=== PATIENT | male | born 1975 | race Hispanic/Latino ===

== ENCOUNTER 2019-08-08 08:46 | Emergency (ER) | payer OTHER ==
--- NOTE | 2019-08-08 09:05 | Emergency Department Report ---
ED Psych HPI - General Chief Complaint: Psych Stated Complaint: BIPOLAR/SCHIZOPHRENIA Time Seen by Provider: 08/08/19 09:01 Source: patient Mode of arrival: Ambulatory - History of Present Illness Initial Comments: 43-year-old male patient with history of schizophrenia and bipolar disorder presents with complaint of depression AND suicide for the past few days. Patient states he has a plan to cut his wrists and brought in a freezer to the ED with him. When asked what he planned to use the razor for patient states "I plead the fifth". Patient denies any homicidal thoughts. He states he is not currently taking medications for his bipolar/schizophrenia. He also denies any auditory/visual hallucinations. He admits to use of marijuana, but denies any other recreational drug use. MD Complaint: suicidal ideation, feels depressed -: Gradual, days(s) Associated Psychiatric Symptoms: depression, suicidal ideation Quality: constant Treatments Prior to Arrival: none If Self Harm: admits thoughts of, has plan - Related Data Allergies Allergy/AdvReac Type Severity Reaction Status Date / Time Sulfa (Sulfonamide Allergy Rash Verified 08/08/19 08:53 Antibiotics) ED Review of Systems ROS: Stated complaint: BIPOLAR/SCHIZOPHRENIA Other details as noted in HPI Comment: All other systems reviewed and negative Psychiatric: as per HPI ED Past Medical Hx - Past Medical History Previous Medical History?: Yes Hx Psychiatric Treatment: Yes (Bi polar/Schizophrenic) - Surgical History Past Surgical History?: No - Social History Smoking Status: Current Every Day Smoker Substance Use Type: Alcohol ED Physical Exam - General Limitations: No Limitations - Head Head exam: Present: atraumatic, normocephalic - Eye Eye exam: Present: normal appearance, PERRL - ENT ENT exam: Present: mucous membranes moist - Respiratory Respiratory exam: Present: normal lung sounds bilaterally. Absent: respiratory distress - Cardiovascular Cardiovascular Exam: Present: regular rate, normal rhythm, normal heart sounds. Absent: systolic murmur, diastolic murmur, rubs, gallop - Neurological Exam Neurological exam: Present: alert, oriented X3, normal gait - Psychiatric Psychiatric exam: Present: normal affect, depressed, suicidal ideation. Absent: agitated, anxious, homicidal ideation - Skin Skin exam: Present: warm, dry, intact, normal color. Absent: rash ED Course Vital Signs 08/08/19 08/08/19 09:30 16:29 Temperature 98.3 F 98 F Pulse Rate 89 83 Respiratory 18 Rate Blood Pressure 111/63 113/71 [111/63] O2 Sat by Pulse 97 98 Oximetry ED Medical Decision Making - Lab Data Result diagrams: 08/08/19 09:21 08/08/19 09:21 Lab Results 08/08/19 08/08/19 08/08/19 Range/Units 09:21 09:21 09:21 WBC (4.5-11.0) K/mm3 RBC (3.65-5.03) M/mm3 Hgb (11.8-15.2) gm/dl Hct (35.5-45.6) % MCV (84-94) fl MCH (28-32) pg MCHC (32-34) % RDW (13.2-15.2) % Plt Count (140-440) K/mm3 Lymph % (Auto) (13.4-35.0) % Bradford % (Auto) (0.0-7.3) % Eos % (Auto) (0.0-4.3) % Baso % (Auto) (0.0-1.8) % Lymph # (1.2-5.4) K/mm3 Bradford # (0.0-0.8) K/mm3 Eos # (0.0-0.4) K/mm3 Baso # (0.0-0.1) K/mm3 Seg Neutrophils % (40.0-70.0) % Seg Neutrophils # (1.8-7.7) K/mm3 Sodium 139 (137-145) mmol/L Potassium 4.5 (3.6-5.0) mmol/L Chloride 100.9 (98-107) mmol/L Carbon Dioxide 23 (22-30) mmol/L Anion Gap 20 mmol/L BUN 11 (9-20) mg/dL Creatinine 0.7 L (0.8-1.5) mg/dL Estimated GFR > 60 ml/min BUN/Creatinine Ratio 16 % Glucose 104 H (75-100) mg/dL Calcium 9.1 (8.4-10.2) mg/dL Urine Color (Yellow) Urine Turbidity (Clear) Urine pH (5.0-7.0) Ur Specific Walnut (1.003-1.030) Urine Protein (Negative) mg/dL Urine Glucose (UA) (Negative) mg/dL Urine Ketones (Negative) mg/dL Urine Blood (Negative) Urine Nitrite (Negative) Urine Bilirubin (Negative) Urine Urobilinogen (<2.0) mg/dL Ur Leukocyte Esterase (Negative) Urine WBC (Auto) (0.0-6.0) /HPF Urine RBC (Auto) (0.0-6.0) /HPF U Epithel Cells (Auto) (0-13.0) /HPF Urine Bacteria (Auto) (Negative) /HPF Salicylates < 0.3 L (2.8-20.0) mg/dL Urine Opiates Screen Urine Methadone Screen Acetaminophen < 5.0 L (10.0-30.0) ug/mL Ur Barbiturates Screen Ur Phencyclidine Scrn Ur Amphetamines Screen U Benzodiazepines Scrn Urine Cocaine Screen U Marijuana (THC) Screen Drugs of Abuse Note Plasma/Serum Alcohol (0-0.07) % 08/08/19 08/08/19 08/08/19 Range/Units 09:21 09:21 Unknown WBC 5.8 (4.5-11.0) K/mm3 RBC 5.19 H (3.65-5.03) M/mm3 Hgb 12.6 (11.8-15.2) gm/dl Hct 37.6 (35.5-45.6) % MCV 73 L (84-94) fl MCH 24 L (28-32) pg MCHC 34 (32-34) % RDW 18.5 H (13.2-15.2) % Plt Count 291 (140-440) K/mm3 Lymph % (Auto) 28.8 (13.4-35.0) % Bradford % (Auto) 7.5 H (0.0-7.3) % Eos % (Auto) 1.0 (0.0-4.3) % Baso % (Auto) 0.6 (0.0-1.8) % Lymph # 1.7 (1.2-5.4) K/mm3 Bradford # 0.4 (0.0-0.8) K/mm3 Eos # 0.1 (0.0-0.4) K/mm3 Baso # 0.0 (0.0-0.1) K/mm3 Seg Neutrophils % 62.1 (40.0-70.0) % Seg Neutrophils # 3.6 (1.8-7.7) K/mm3 Sodium (137-145) mmol/L Potassium (3.6-5.0) mmol/L Chloride (98-107) mmol/L Carbon Dioxide (22-30) mmol/L Anion Gap mmol/L BUN (9-20) mg/dL Creatinine (0.8-1.5) mg/dL Estimated GFR ml/min BUN/Creatinine Ratio % Glucose (75-100) mg/dL Calcium (8.4-10.2) mg/dL Urine Color Yellow (Yellow) Urine Turbidity Cloudy (Clear) Urine pH 8.0 H (5.0-7.0) Ur Specific Walnut 1.014 (1.003-1.030) Urine Protein <15 mg/dl (Negative) mg/dL Urine Glucose (UA) Neg (Negative) mg/dL Urine Ketones Neg (Negative) mg/dL Urine Blood Neg (Negative) Urine Nitrite Neg (Negative) Urine Bilirubin Neg (Negative) Urine Urobilinogen < 2.0 (<2.0) mg/dL Ur Leukocyte Esterase Neg (Negative) Urine WBC (Auto) 15.0 H (0.0-6.0) /HPF Urine RBC (Auto) 3.0 (0.0-6.0) /HPF U Epithel Cells (Auto) < 1.0 (0-13.0) /HPF Urine Bacteria (Auto) 1+ (Negative) /HPF Salicylates (2.8-20.0) mg/dL Urine Opiates Screen Urine Methadone Screen Acetaminophen (10.0-30.0) ug/mL Ur Barbiturates Screen Ur Phencyclidine Scrn Ur Amphetamines Screen U Benzodiazepines Scrn Urine Cocaine Screen U Marijuana (THC) Screen Drugs of Abuse Note Plasma/Serum Alcohol < 0.01 (0-0.07) % 08/08/19 Range/Units Unknown WBC (4.5-11.0) K/mm3 RBC (3.65-5.03) M/mm3 Hgb (11.8-15.2) gm/dl Hct (35.5-45.6) % MCV (84-94) fl MCH (28-32) pg MCHC (32-34) % RDW (13.2-15.2) % Plt Count (140-440) K/mm3 Lymph % (Auto) (13.4-35.0) % Bradford % (Auto) (0.0-7.3) % Eos % (Auto) (0.0-4.3) % Baso % (Auto) (0.0-1.8) % Lymph # (1.2-5.4) K/mm3 Bradford # (0.0-0.8) K/mm3 Eos # (0.0-0.4) K/mm3 Baso # (0.0-0.1) K/mm3 Seg Neutrophils % (40.0-70.0) % Seg Neutrophils # (1.8-7.7) K/mm3 Sodium (137-145) mmol/L Potassium (3.6-5.0) mmol/L Chloride (98-107) mmol/L Carbon Dioxide (22-30) mmol/L Anion Gap mmol/L BUN (9-20) mg/dL Creatinine (0.8-1.5) mg/dL Estimated GFR ml/min BUN/Creatinine Ratio % Glucose (75-100) mg/dL Calcium (8.4-10.2) mg/dL Urine Color (Yellow) Urine Turbidity (Clear) Urine pH (5.0-7.0) Ur Specific Walnut (1.003-1.030) Urine Protein (Negative) mg/dL Urine Glucose (UA) (Negative) mg/dL Urine Ketones (Negative) mg/dL Urine Blood (Negative) Urine Nitrite (Negative) Urine Bilirubin (Negative) Urine Urobilinogen (<2.0) mg/dL Ur Leukocyte Esterase (Negative) Urine WBC (Auto) (0.0-6.0) /HPF Urine RBC (Auto) (0.0-6.0) /HPF U Epithel Cells (Auto) (0-13.0) /HPF Urine Bacteria (Auto) (Negative) /HPF Salicylates (2.8-20.0) mg/dL Urine Opiates Screen Presumptive negative Urine Methadone Screen Presumptive negative Acetaminophen (10.0-30.0) ug/mL Ur Barbiturates Screen Presumptive negative Ur Phencyclidine Scrn Presumptive negative Ur Amphetamines Screen Presumptive negative U Benzodiazepines Scrn Presumptive negative Urine Cocaine Screen Presumptive negative U Marijuana (THC) Screen Presumptive positive Drugs of Abuse Note Disclamer Plasma/Serum Alcohol (0-0.07) % - Medical Decision Making Patient placed on 1013 for suicidal thoughts with plan to harm himself. Razor was taken from patient. Patient denies any other complaints. Patient is medically cleared. UA shows 15 WBCsurine culture and GC chlamydia ordered. Patient denies penile discharge or dysuria. Critical care attestation.: If time is entered above; I have spent that time in minutes in the direct care of this critically ill patient, excluding procedure time. ED Disposition Clinical Impression: Suicidal ideation Disposition: DC/TX-65 PSY HOSP/PSY UNIT Is pt being admited?: No Condition: Stable
[2019-08-08 09:38] LABS: Basophils % (Auto) 0.6 % (0.0-1.8); Eosinophils # (Auto) 0.1 K/mm3 (0.0-0.4); Hematocrit 37.6 % (35.5-45.6); Hemoglobin 12.6 gm/dl (11.8-15.2); Lymphocytes # (Auto) 1.7 K/mm3 (1.2-5.4); Lymphocytes % (Auto) 28.8 % (13.4-35.0); Mean Corpuscular HGB Conc 34 % (32-34); Mean Corpuscular Volume 73 fl (84-94); Monocytes # (Auto) 0.4 K/mm3 (0.0-0.8); Monocytes % (Auto) 7.5 % (0.0-7.3); Platelet Count 291 K/mm3 (140-440); Red Blood Count 5.19 M/mm3 (3.65-5.03); Red Cell Distribution Width 18.5 % (13.2-15.2)
[2019-08-08 09:47] LABS: Amphetamine Screen,Urine PRESUMPTIVE NEGATIVE; Bacteria,Urine 1+ /HPF (Negative); Benzodiazepines Screen,Urine PRESUMPTIVE NEGATIVE; Bilirubin,Urine NEG (Negative); Blood,Urine NEG (Negative); Cocaine Screen,Urine PRESUMPTIVE NEGATIVE; Color,Urine Yellow (Yellow); Methadone Screen,Urine PRESUMPTIVE NEGATIVE; Opiate Screen,Urine PRESUMPTIVE NEGATIVE; Protein,Urine <15 mg/dL mg/dL (Negative); Urobilinogen,Urine < 2.0 mg/dL (<2.0)
[2019-08-08 09:58] LABS: BUN/Creatinine Ratio 16; Blood Urea Nitrogen 11 mg/dL (9-20); Calcium 9.1 mg/dL (8.4-10.2); Hemolysis Index 5
[2019-08-08 10:03] LABS: Cannabinoid Screen,Urine PRESUMPTIVE POSITIVE
[2019-08-08 16:30] VITALS: BP 113/71
== END 2019-08-08 19:00 ==
LOC: ED 08:46
DX: F31.9 Bipolar disorder, unspecified (principal); F20.9 Schizophrenia, unspecified; F17.200 Nicotine dependence, unspecified, uncomplicated; Z88.2 Allergy status to sulfonamides
CPT/HCPCS: 36415; 80048; 80307; 80320; 81001; 85025; 87076; 87086; 87186; G0480

== ENCOUNTER 2019-08-12 23:33 | Emergency (ER) | payer OTHER ==
[2019-08-13 00:20] VITALS: BP 113/68
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
== END 2019-08-13 04:23 | disposition home or self-care (01) ==
LOC: ED 23:33
DX: F20.9 Schizophrenia, unspecified (principal); F31.9 Bipolar disorder, unspecified; F17.200 Nicotine dependence, unspecified, uncomplicated; Z90.49 Acquired absence of other specified parts of digestive tract; Z88.2 Allergy status to sulfonamides

== ENCOUNTER 2021-04-12 13:06 | Emergency (ER) | payer OTHER | END 2021-04-12 13:15 | disposition left against medical advice (07) | LOC: ED 13:06 ==

== ENCOUNTER 2021-04-16 16:25 | Emergency (ER) | payer MEDICARE, OTHER ==
--- NOTE | 2021-04-16 17:47 | Emergency Department Report ---
ED Psych HPI - General Chief Complaint: Psych Stated Complaint: MENTAL HEALTH Time Seen by Provider: 04/16/21 17:30 Source: patient Mode of arrival: Ambulatory - History of Present Illness Initial Comments: Patient is 45 years old male with history of schizophrenia. Patient presented to the ER stating that he wanted to be [facility] of his [facility]. Patient stated that he want to change his sex to became a boy. Patient is very delusional with flight of ideas. Patient denied any suicidal or homicidal ideation. He stated that he is hearing voices sometimes. No visual hallucination. Patient admitted using methamphetamine last night. MD Complaint: altered mental status -: days(s) Context: recent drug abuse - Related Data Allergies Allergy/AdvReac Type Severity Reaction Status Date / Time Sulfa (Sulfonamide Allergy Rash Verified 08/08/19 08:53 Antibiotics) ED Review of Systems ROS: Stated complaint: MENTAL HEALTH Other details as noted in HPI Comment: All other systems reviewed and negative Constitutional: denies: chills, fever Respiratory: denies: cough, shortness of breath, SOB with exertion Cardiovascular: denies: chest pain, palpitations Gastrointestinal: denies: abdominal pain, nausea, vomiting, diarrhea, constipation, hematemesis, melena Musculoskeletal: denies: back pain ED Past Medical Hx - Past Medical History Previous Medical History?: Yes Hx Psychiatric Treatment: Yes (Bi polar/Schizophrenic) Hx HIV: Yes - Surgical History Past Surgical History?: Yes Hx Cholecystectomy: Yes Hx Appendectomy: Yes - Social History Smoking Status: Current Every Day Smoker Substance Use Type: None ED Physical Exam - General Limitations: No Limitations General appearance: alert, in no apparent distress, anxious - Head Head exam: Present: atraumatic, normocephalic, normal inspection - Eye Eye exam: Present: normal appearance, PERRL - ENT ENT exam: Present: normal exam, normal orophraynx, mucous membranes moist - Neck Neck exam: Present: normal inspection, full ROM. Absent: tenderness, meni ngismus - Respiratory Respiratory exam: Present: normal lung sounds bilaterally - Cardiovascular Cardiovascular Exam: Present: regular rate, normal rhythm, normal heart sounds - GI/Abdominal GI/Abdominal exam: Present: soft, normal bowel sounds. Absent: distended, tenderness, guarding, rebound, rigid, organomegaly, mass, bruit, pulsatile mass, hernia - Extremities Exam Extremities exam: Present: normal inspection, full ROM, normal capillary refill - Back Exam Back exam: Present: normal inspection, full ROM. Absent: CVA tenderness (R), CVA tenderness (L) - Neurological Exam Neurological exam: Present: alert, oriented X3, CN II-XII intact, normal gait, reflexes normal. Absent: motor sensory deficit - Psychiatric Psychiatric exam: Present: normal mood, anxious. Absent: homicidal ideation, suicidal ideation - Skin Skin exam: Present: warm, intact, normal color ED Course Vital Signs 04/16/21 04/16/21 04/16/21 16:39 17:43 19:51 Temperature 98.7 F 97.8 F 97.3 F L Pulse Rate 81 83 86 Respiratory 18 20 18 Rate Blood Pressure 117/77 Blood Pressure 107/64 118/77 [Right] O2 Sat by Pulse 100 98 100 Oximetry ED Medical Decision Making - Lab Data Result diagrams: 04/16/21 17:51 04/16/21 17:51 Critical care attestation.: If time is entered above; I have spent that time in minutes in the direct care of this critically ill patient, excluding procedure time. ED Disposition Clinical Impression: Acute psychosis Disposition: DC/TX-65 PSY HOSP/PSY UNIT Is pt being admited?: No Condition: Stable Referrals: PRIMARY CARE, [Primary Care Provider] - 3-5 Days
[2021-04-16 17:53] LABS: Bilirubin,Urine NEG (Negative); Blood,Urine NEG (Negative); Color,Urine Yellow (Yellow); Mucus,Urine 1+ /HPF; Protein,Urine <15 mg/dL mg/dL (Negative)
[2021-04-16 18:01] LABS: Benzodiazepines Screen,Urine Negative; Cocaine Screen,Urine Negative; Methadone Screen,Urine Negative; Opiate Screen,Urine Negative
[2021-04-16 18:06] LABS: Basophils % (Auto) 0.9 % (0.0-1.8); Eosinophils % (Auto) 1.3 % (0.0-4.3); Hematocrit 34.8 % (35.5-45.6); Lymphocytes # (Auto) 0.9 K/mm3 (1.2-5.4); Lymphocytes % (Auto) 26.9 % (13.4-35.0); Mean Corpuscular HGB Conc 34 % (32-34); Mean Corpuscular Volume 84 fl (84-94); Monocytes # (Auto) 0.4 K/mm3 (0.0-0.8); Monocytes % (Auto) 11.8 % (0.0-7.3); Platelet Count 169 K/mm3 (140-440); Red Blood Count 4.15 M/mm3 (3.65-5.03); Red Cell Distribution Width 16.9 % (13.2-15.2)
[2021-04-16 18:25] LABS: Blood Urea Nitrogen 8 mg/dL (9-20); Calcium 9.3 mg/dL (8.4-10.2); Hemolysis Index 12
[2021-04-16 18:28] LABS: Amphetamine Screen,Urine Positive; Cannabinoid Screen,Urine Positive
[2021-04-16 18:34] LABS: BUN/Creatinine Ratio 16
[2021-04-17 03:32] VITALS: BP 118/77
== END 2021-04-17 01:30 ==
LOC: ED 16:25
DX: F23 Brief psychotic disorder (principal); F25.0 Schizoaffective disorder, bipolar type; F17.200 Nicotine dependence, unspecified, uncomplicated; Z21 Asymptomatic human immunodeficiency virus [HIV] infection status; Z88.2 Allergy status to sulfonamides; Z90.49 Acquired absence of other specified parts of digestive tract
CPT/HCPCS: 36415; 80048; 80307; 80320; 81001; 85025; 87086; G0480

== ENCOUNTER 2021-05-04 08:42 | Emergency (ER) | payer MEDICARE ==
--- NOTE | 2021-05-04 12:19 | Emergency Department Report ---
<GREYDENISEGEOVANNA CARBALLOGeovanni - Last Filed: 05/04/21 12:17> ED Psych HPI - General Chief Complaint: Psych Stated Complaint: mental help Time Seen by Provider: 05/04/21 12:07 Source: patient Mode of arrival: Ambulatory - History of Present Illness Initial Comments: Patient is 45 years old male with history of schizophrenia and bipolar. Patient stated that he is depressed because he lost his debit card and now he is feeling suicidal. Patient stated that he felt like he wanted to cut his wrist. Patient stated that he is hearing voices asking him to hurt himself. He denied any visual hallucination or homicidal ideation. MD Complaint: suicidal ideation, feels depressed - Related Data Allergies Allergy/AdvReac Type Severity Reaction Status Date / Time Sulfa (Sulfonamide Allergy Rash Verified 08/08/19 08:53 Antibiotics) ED Review of Systems Comment: All other systems reviewed and negative Constitutional: denies: chills, fever Respiratory: denies: cough, shortness of breath, SOB with exertion Cardiovascular: denies: chest pain, palpitations Gastrointestinal: denies: abdominal pain, nausea, vomiting Musculoskeletal: denies: back pain Neurological: denies: headache, weakness ED Past Medical Hx - Past Medical History Previous Medical History?: Yes Hx Psychiatric Treatment: Yes (Bi polar/Schizophrenic) Hx HIV: Yes - Surgical History Hx Cholecystectomy: Yes Hx Appendectomy: Yes - Social History Smoking Status: Unknown if ever smoked ED Physical Exam - General Limitations: No Limitations General appearance: alert, in no apparent distress - Head Head exam: Present: atraumatic, normocephalic, normal inspection - Eye Eye exam: Present: normal appearance, PERRL - Neck Neck exam: Present: normal inspection, full ROM. Absent: tenderness, meningismus - Respiratory Respiratory exam: Present: normal lung sounds bilaterally - Cardiovascular Cardiovascular Exam: Present: regular rate, normal rhythm, normal heart sounds - GI/Abdominal GI/Abdominal exam: Present: soft, normal bowel sounds. Absent: distended, tenderness, guarding, rebound, rigid, organomegaly, mass, bruit, pulsatile mass, hernia - Extremities Exam Extremities exam: Present: normal inspection, full ROM, normal capillary refill. Absent: pedal edema, calf tenderness - Back Exam Back exam: Present: normal inspection, full ROM. Absent: CVA tenderness (R), CVA tenderness (L) - Neurological Exam Neurological exam: Present: alert, oriented X3, CN II-XII intact - Psychiatric Psychiatric exam: Present: normal mood, suicidal ideation - Skin Skin exam: Present: warm, intact, normal color ED Disposition Clinical Impression: Acute depression, Suicidal ideation Disposition: DC/TX-65 PSY HOSP/PSY UNIT Condition: Stable <ROBERTTRISTIN - Last Filed: 05/04/21 18:06> ED Review of Systems ROS: Stated complaint: mental help Other details as noted in HPI ED Course Vital Signs 05/04/21 05/04/21 09:03 12:06 Temperature 98.1 F 98.0 F Pulse Rate 86 90 Respiratory 18 20 Rate Blood Pressure 125/71 Blood Pressure 120/60 [Right] O2 Sat by Pulse 97 100 Oximetry ED Medical Decision Making - Lab Data Result diagrams: 05/04/21 12:23 05/04/21 12:23 - Medical Decision Making [facility]. Critical care attestation.: If time is entered above; I have spent that time in minutes in the direct care of this critically ill patient, excluding procedure time. ED Disposition Is pt being admited?: No Does the pt Need Aspirin: No
[2021-05-04 12:47] LABS: Basophils % (Auto) 0.5 % (0.0-1.8); Eosinophils # (Auto) 0.1 K/mm3 (0.0-0.4); Eosinophils % (Auto) 1.8 % (0.0-4.3); Hematocrit 39.4 % (35.5-45.6); Hemoglobin 13.4 gm/dl (11.8-15.2); Lymphocytes # (Auto) 0.8 K/mm3 (1.2-5.4); Lymphocytes % (Auto) 21.7 % (13.4-35.0); Mean Corpuscular HGB Conc 34 % (32-34); Mean Corpuscular Volume 86 fl (84-94); Monocytes # (Auto) 0.2 K/mm3 (0.0-0.8); Monocytes % (Auto) 6.9 % (0.0-7.3); Platelet Count 167 K/mm3 (140-440); Red Blood Count 4.61 M/mm3 (3.65-5.03); Red Cell Distribution Width 16.6 % (13.2-15.2)
[2021-05-04 13:04] LABS: Blood Urea Nitrogen 8 mg/dL (9-20); Hemolysis Index 38
[2021-05-04 13:15] LABS: BUN/Creatinine Ratio 16
[2021-05-04 16:39] LABS: Bilirubin,Urine NEG (Negative); Blood,Urine NEG (Negative); Color,Urine Straw (Yellow); Protein,Urine <15 mg/dL mg/dL (Negative); RBC,Urine < 1.0 /HPF (0.0-6.0); Urobilinogen,Urine < 2.0 mg/dL (<2.0)
[2021-05-04 16:42] LABS: Amphetamine Screen,Urine Negative; Benzodiazepines Screen,Urine Negative; Cannabinoid Screen,Urine Negative; Cocaine Screen,Urine Negative; Methadone Screen,Urine Negative; Opiate Screen,Urine Negative
[2021-05-04 19:56] VITALS: BP 99/70
== END 2021-05-04 21:42 ==
LOC: ED 08:42
DX: R45.851 Suicidal ideations (principal); F32.9 Major depressive disorder, single episode, unspecified; F20.9 Schizophrenia, unspecified; Z90.49 Acquired absence of other specified parts of digestive tract; Z21 Asymptomatic human immunodeficiency virus [HIV] infection status; Z88.2 Allergy status to sulfonamides
CPT/HCPCS: 36415; 80048; 80307; 80320; 81001; 82962; 85025; G0480

== ENCOUNTER 2022-04-12 23:40 | Emergency (ER) | payer MEDICARE ==
[2022-04-13 04:23] LABS: Alanine Aminotransferase 11 units/L (7-56); Blood Urea Nitrogen 13 mg/dL (9-20); Calcium 9.3 mg/dL (8.4-10.2); Hemolysis Index 5
[2022-04-13 04:26] LABS: BUN/Creatinine Ratio 19
[2022-04-13 04:29] LABS: Basophils % (Auto) 0.5 % (0.0-1.8); Eosinophils # (Auto) 0.1 K/mm3 (0.0-0.4); Eosinophils % (Auto) 1.6 % (0.0-4.3); Hematocrit 44.6 % (35.5-45.6); Hemoglobin 15.1 gm/dl (11.8-15.2); Lymphocytes # (Auto) 1.7 K/mm3 (1.2-5.4); Lymphocytes % (Auto) 35.1 % (13.4-35.0); Mean Corpuscular HGB Conc 34 % (32-34); Mean Corpuscular Volume 89 fl (84-94); Monocytes # (Auto) 0.6 K/mm3 (0.0-0.8); Platelet Count 231 K/mm3 (140-440); Red Blood Count 5.02 M/mm3 (3.65-5.03); Red Cell Distribution Width 15.1 % (13.2-15.2)
--- NOTE | 2022-04-13 05:07 | Emergency Department Report ---
ED Psych HPI - General Chief Complaint: Psych Stated Complaint: MH Time Seen by Provider: 04/13/22 01:53 Source: patient Mode of arrival: Stretcher - History of Present Illness Initial Comments: Patient is a 46-year-old male sent from [facility] for psychiatric evaluation. Staff reports that he has been increasingly talkative and delusional. He denies suicidal or homicidal ideation. - Related Data Allergies Allergy/AdvReac Type Severity Reaction Status Date / Time Sulfa (Sulfonamide Allergy Rash Verified 08/08/19 08:53 Antibiotics) ED Review of Systems ROS: Stated complaint: MH Other details as noted in HPI Constitutional: denies: chills, fever Respiratory: denies: cough, shortness of breath, wheezing Cardiovascular: denies: chest pain, palpitations Gastrointestinal: denies: abdominal pain, nausea, diarrhea Musculoskeletal: denies: back pain, joint swelling, arthralgia Skin: denies: rash, lesions Psychiatric: denies: homicidal thoughts, suicidal thoughts ED Past Medical Hx - Past Medical History Previous Medical History?: Yes Hx Psychiatric Treatment: Yes (Bi polar/Schizophrenic) Hx HIV: Yes - Surgical History Past Surgical History?: Yes Hx Cholecystectomy: Yes Hx Appendectomy: Yes - Social History Smoking Status: Current Every Day Smoker Substance Use Type: None ED Physical Exam - General Limitations: No Limitations General appearance: alert, in no apparent distress, other - Head Head exam: Present: atraumatic, normocephalic - Eye Eye exam: Present: normal appearance - Neck Neck exam: Present: normal inspection - Respiratory Respiratory exam: Present: normal lung sounds bilaterally. Absent: respiratory distress - Cardiovascular Cardiovascular Exam: Present: regular rate, normal rhythm, normal heart sounds - GI/Abdominal GI/Abdominal exam: Present: soft. Absent: distended, tenderness - Neurological Exam Neurological exam: Present: alert - Psychiatric Psychiatric exam: Present: normal mood. Absent: homicidal ideation, suicidal ideation - Skin Skin exam: Present: warm, dry, intact, normal color ED Course Vital Signs 04/13/22 00:51 Temperature 98.6 F Pulse Rate 55 L Respiratory 16 Rate Blood Pressure 112/63 [Left] O2 Sat by Pulse 98 Oximetry ED Medical Decision Making - Lab Data Result diagrams: 04/13/22 03:25 04/13/22 03:25 - Medical Decision Making Labs grossly unremarkable. Patient medically cleared. Awaiting mental health assessment. Critical care attestation.: If time is entered above; I have spent that time in minutes in the direct care of this critically ill patient, excluding procedure time. ED Disposition Clinical Impression: Encounter for psychiatric assessment Disposition: 30 STILL A PATIENT Is pt being admited?: No Condition: Stable
--- NOTE | 2022-04-13 09:37 | Consultation ---
History of Present Illness - Reason for Consult Consult date: 04/13/22 Reason for consult: psychosis - History of Present Psychiatric Illness HPI: Patient is a 46-year-old male sent from [facility] for psychiatric evaluation. Staff reports that he has been increasingly talkative and delusional. He denies suicidal or homicidal ideation. The patient was seen today. He is acutely psychotic. He is responding to internal stimuli. He is difficult to engage due to his psychosis. The patient is heard talking loudly to people who are not there. He says he "keeps smelling chocolate." He asks me was I "Pee-wee." He then looks to the left and asks "Pee- wee, do you know her." I ask him did he have thoughts of harming himself or others, the patient says "let me ask them." He then says "no, I don't want to do that." He continues to mumble and rant during the evaluation. PAST PSYCHIATRIC HISTORY: Diagnoses: Schizophrenia Suicide attempts or Self-harm behavior: Denies Prior psychiatric hospitalizations: Yes Substance Abuse history: Denies Previous psychiatric medications tried: Denies Outpatient treatment: Denies PAST MEDICAL HISTORY: none reported Family Psychiatric History: None reported or documented SOCIAL HISTORY Unable to assess REVIEW OF SYSTEMS Constitutional: Negative for weight loss ENT: Negative for stridor Respiratory: Negative for cough or hemoptysis All other systems reviewed and are negative MENTAL STATUS EXAMINATION Unable to assess Diagnoses: Schizophrenia Treatment Plan 1013 Risperidone 0.25mg po BID Doxepin 10mg po qhs Sitter: per primary Medical: Per primary Disposition: Recommend acute psychiatric inpatient treatment Will follow. Thanks Case staffed with Dr. Flores Medications and Allergies Allergies Allergy/AdvReac Type Severity Reaction Status Date / Time Sulfa (Sulfonamide Allergy Rash Verified 08/08/19 08:53 Antibiotics) Mental Status Exam - Vital signs Last Vital Signs Temp 98.6 F 04/13/22 00:51 Pulse 55 L 04/13/22 00:51 Resp 16 04/13/22 00:51 BP 112/63 04/13/22 00:51 Pulse Ox 96 04/13/22 05:16 Results Result Diagrams: 04/13/22 03:25 04/13/22 03:25 Abnormal lab results 04/13/22 04/13/22 04/13/22 Range/Units 03:25 03:25 03:25 Lymph % (Auto) 35.1 H (13.4-35.0) % [place] % (Auto) 12.0 H (0.0-7.3) % Creatinine 0.7 L (0.8-1.3) mg/dL Salicylates < 0.3 L (2.8-20.0) mg/dL Acetaminophen (10.0-30.0) ug/mL 04/13/22 Range/Units 03:25 Lymph % (Auto) (13.4-35.0) % [place] % (Auto) (0.0-7.3) % Creatinine (0.8-1.3) mg/dL Salicylates (2.8-20.0) mg/dL Acetaminophen 5.0 L (10.0-30.0) ug/mL All other labs normal.
--- NOTE | 2022-04-13 11:27 | Event Note ---
Date: 04/13/22 vss , no distress , no problems overight medically cleared 1013 , awaiting transfer to [facility] facility
[2022-04-13 14:45] LABS: Bilirubin,Urine NEG (Negative); Blood,Urine NEG (Negative); Color,Urine Yellow (Yellow); Protein,Urine <15 mg/dL mg/dL (Negative)
[2022-04-13 14:51] LABS: Calcium Oxalate Crystals,Urine FEW; Mucus,Urine FEW /HPF
[2022-04-13 14:57] LABS: Amphetamine Screen,Urine PRESUMPTIVE NEGATIVE; Benzodiazepines Screen,Urine PRESUMPTIVE NEGATIVE; Cannabinoid Screen,Urine PRESUMPTIVE NEGATIVE; Cocaine Screen,Urine PRESUMPTIVE NEGATIVE; Methadone Screen,Urine PRESUMPTIVE NEGATIVE; Opiate Screen,Urine PRESUMPTIVE NEGATIVE
[2022-04-13] MEDS: risperiDONE 0.25 MG TAB PO SCH ×2 (15:33→22:00)
[2022-04-13] MEDS: DOXEPIN 10 MG CAP PO SCH (22:00)
--- NOTE | 2022-04-14 10:31 | Progress Note ---
Subjective - Reason for Consult Consult date: 04/14/22 Reason for consult: psychosis - Chief Complaint Chief complaint: The patient was seen today. He is still acutely psychotic. He is responding to internal stimuli. He denies hallucinations, but says "it's Alexandru. Alexandru is talking." The patient then mumbles something but refuses to tell me what he said. He denies SI/HI. REVIEW OF SYSTEMS Constitutional: Negative for weight loss ENT: Negative for stridor Respiratory: Negative for cough or hemoptysis All other systems reviewed and are negative MENTAL STATUS EXAMINATION Unable to assess Diagnoses: Schizophrenia Treatment Plan 1013 Increased Risperidone 0.5mg po BID Doxepin 10mg po qhs Sitter: per primary Medical: Per primary Disposition: Recommend acute psychiatric inpatient treatment Will follow. Thanks Case staffed with Dr. Flores Mental Status Exam - Vital signs Last Vital Signs Temp 98.4 F 04/14/22 08:25 Pulse 68 04/14/22 08:25 Resp 18 04/14/22 08:25 BP 132/80 04/14/22 08:25 Pulse Ox 98 04/14/22 10:23
[2022-04-14] MEDS: risperiDONE 0.25 MG TAB PO SCH ×2 (12:10→22:00)
--- NOTE | 2022-04-14 12:28 | Emergency Department Report ---
Blank Doc - Documentation Documentation: 46-year-old male with active psychosis currently on 1013. Vital signs nurses notes, and labs reviewed. COVID-positive. Awaiting placement. Intimately compliant with p.o. medications
[2022-04-14] MEDS: DOXEPIN 10 MG CAP PO SCH (22:01)
--- NOTE | 2022-04-15 11:29 | Progress Note ---
Subjective - Reason for Consult Consult date: 04/15/22 Reason for consult: psychosis - Chief Complaint Chief complaint: The patient was seen today. He is still psychotic. He calling out names of people and looking around as if talking to those people. He is difficult to follow. He denies SI/HI. REVIEW OF SYSTEMS Constitutional: Negative for weight loss ENT: Negative for stridor Respiratory: Negative for cough or hemoptysis All other systems reviewed and are negative MENTAL STATUS EXAMINATION Unable to assess Diagnoses: Schizophrenia Treatment Plan 1013 Increased Risperidone 1mg po BID Increase Doxepin 25mg po qhs Sitter: per primary Medical: Per primary Disposition: Recommend acute psychiatric inpatient treatment Will follow. Thanks Case staffed with Dr. Flores Mental Status Exam - Vital signs Last Vital Signs Temp 98.0 F 04/14/22 20:25 Pulse 72 04/14/22 20:25 Resp 16 04/14/22 20:25 BP 92/60 04/14/22 20:25 Pulse Ox 99 04/15/22 10:59
[2022-04-15] MEDS: risperiDONE 0.25 MG TAB PO SCH (13:41)
--- NOTE | 2022-04-15 13:59 | Emergency Department Report ---
Blank Doc - Documentation Documentation: S: No events reported overnight O: Vital Signs - 8 hr 04/15/22 04/15/22 10:59 14:07 Temperature 98.2 F Pulse Rate 89 Respiratory 20 Rate Blood Pressure 128/74 [Left] O2 Sat by Pulse 99 98 Oximetry A: Schizophrenia P: 1013/awaiting inpatient psych
[2022-04-15] MEDS ORDERED: risperiDONE 1 MG TAB PO SCH (22:00)
[2022-04-15] MEDS: DOXEPIN 25 MG CAP PO SCH (22:48)
--- NOTE | 2022-04-16 11:57 | Progress Note ---
Subjective - Reason for Consult Consult date: 04/16/22 Reason for consult: psychosis - Chief Complaint Chief complaint: The patient was seen today. He is responding to internal stimuli. He says "I feel okay and I got some sleep. Is that okay, Prashant?" He then mumbles something. REVIEW OF SYSTEMS Constitutional: Negative for weight loss ENT: Negative for stridor Respiratory: Negative for cough or hemoptysis All other systems reviewed and are negative MENTAL STATUS EXAMINATION Unable to assess Diagnoses: Schizophrenia Treatment Plan 1013 Increased Risperidone 1.5mg po BID Doxepin 25mg po qhs Sitter: per primary Medical: Per primary Disposition: Recommend acute psychiatric inpatient treatment Will follow. Thanks Case staffed with Dr. Flores Mental Status Exam - Vital signs Last Vital Signs Temp 98.2 F 04/15/22 14:07 Pulse 89 04/15/22 14:07 Resp 20 04/15/22 14:07 BP 128/74 04/15/22 14:07 Pulse Ox 98 04/15/22 14:07
--- NOTE | 2022-04-16 12:11 | Emergency Department Report ---
Blank Doc - Documentation Documentation: S: No events reported overnight O: Vital Signs - 8 hr 04/16/22 04/16/22 12:28 12:29 Temperature 98.7 F Pulse Rate 63 Respiratory 18 Rate Blood Pressure 93/63 [Left] O2 Sat by Pulse 96 96 Oximetry A: Schizophrenia P: 1013/awaiting inpatient psych
[2022-04-16] MEDS: risperiDONE 1 MG TAB PO SCH ×2 (13:05→22:00)
[2022-04-16] MEDS: DOXEPIN 25 MG CAP PO SCH (22:00)
[2022-04-17] MEDS ORDERED: HALOPERIDOL LACTATE 5 MG/1 ML INJ IM ONE (00:52)
--- NOTE | 2022-04-17 08:23 | Progress Note ---
Subjective - Reason for Consult Consult date: 04/17/22 Reason for consult: psychosis - Chief Complaint Chief complaint: The patient was seen today. He is still acutely psychotic. His speech is nonsensical. He is suspicious and rambles incoherently. The patient does redirect easily. He speaks coherently during some of the conversation. REVIEW OF SYSTEMS Constitutional: Negative for weight loss ENT: Negative for stridor Respiratory: Negative for cough or hemoptysis All other systems reviewed and are negative MENTAL STATUS EXAMINATION Unable to assess Diagnoses: Schizophrenia Treatment Plan 1013 Increased Risperidone 2mg po BID Start Klonopin 0.5mg po BID x 3 days. Doxepin 25mg po qhs Sitter: per primary Medical: Per primary Disposition: Recommend acute psychiatric inpatient treatment Will follow. Thanks Case staffed with Dr. Flores Mental Status Exam - Vital signs Last Vital Signs Temp 98.3 F 04/16/22 20:18 Pulse 90 04/16/22 20:18 Resp 16 04/16/22 20:18 BP 128/68 04/16/22 20:18 Pulse Ox 98 04/16/22 20:18
[2022-04-17] MEDS: clonazePAM 0.5 MG TAB PO SCH ×2 (09:50→22:37)
[2022-04-17] MEDS: risperiDONE 1 MG TAB PO SCH ×2 (09:50→22:37)
--- NOTE | 2022-04-17 11:33 | Emergency Department Report ---
Blank Doc - Documentation Documentation: This patient initially presented on 04/13 from a [facility] with concern for ac leandro psychosis. For this reason he was made a 1013. He has been seen by behavioral health each day, including today, and they continue to recommend inpatient stabilization secondary to this acute psychosis. During his medical clearance patient was found to be positive for COVID-19 and this is most likely the reason the patient has remained in our emergency department instead of placement. No new labs from overnight. Vital signs have been reassuring over the past 24 hours. No acute events/incident signed out from overnight or this morning by the ED psychiatric nurse, Margy. We will continue to monitor this patient during his ED course.
[2022-04-17 20:52] VITALS: BP 97/54
[2022-04-17] MEDS: DOXEPIN 25 MG CAP PO SCH (22:37)
[2022-04-18] MEDS: risperiDONE 1 MG TAB PO SCH (09:48)
[2022-04-18] MEDS: clonazePAM 0.5 MG TAB PO SCH (09:48)
--- NOTE | 2022-04-18 14:25 | Progress Note ---
Subjective - Reason for Consult Consult date: 04/18/22 Reason for consult: Mental health evaluation - Chief Complaint Chief complaint: The patient was seen today. He is calm, alert and oriented x2 and reports doing well. He states sleep and appetite as good. He denies any current suicidal/homicidal ideation and denies hallucinations. REVIEW OF SYSTEMS Constitutional: Negative for weight loss ENT: Negative for stridor Respiratory: Negative for cough or hemoptysis All other systems reviewed and are negative MENTAL STATUS EXAMINATION Unable to assess Diagnoses: Schizophrenia Treatment Plan [id number] Risperidone 3mg po QHS Sitter: per primary Medical: Per primary Disposition:Do not recommend acute psychiatric inpatient treatment Will sign off. Thanks Case staffed with Dr. Flores Mental Status Exam - Vital signs Last Vital Signs Temp 98.5 F 04/17/22 20:30 Pulse 60 04/17/22 20:30 Resp 18 04/17/22 20:30 BP 97/54 04/17/22 20:30 Pulse Ox 97 04/18/22 09:33
--- NOTE | 2022-04-18 15:24 | Emergency Department Report ---
Blank Doc - Documentation Documentation: 46-year-old man with schizophrenia initially mated 1013 for acute psychosis. Patient is recommended for discharge by mental health today. Psych has prescribed medications. Patient was initially COVID-positive but has since tested negative today
== END 2022-04-18 17:01 | disposition home or self-care (01) ==
LOC: ED 23:40 → EEVIPCON 23:40 → ED 04-18 17:01
DX: Z13.30 Encounter for screening examination for mental health and behavioral disorders, unspecified (principal); F31.9 Bipolar disorder, unspecified; Z21 Asymptomatic human immunodeficiency virus [HIV] infection status; Z90.49 Acquired absence of other specified parts of digestive tract; F17.200 Nicotine dependence, unspecified, uncomplicated; Z79.899 Other long term (current) drug therapy; Z20.822 Contact with and (suspected) exposure to COVID-19
CPT/HCPCS: 36415; 80053; 80307; 81001; 85025; 99284; J1630; U0003; 80320; 96372; G0480